=== PATIENT | female | born 1985 | race African-American/Black ===

== ENCOUNTER 2016-06-15 23:59 | Emergency (ER) | payer OTHER ==
[2016-06-16 00:31] LABS: URINE SOURCE CLEAN CATCH
[2016-06-16 01:45] LABS: URINE APPEARANCE CLEAR; URINE BILIRUBIN NEG (NEG); URINE BLOOD NEG (NEG); URINE COLOR YELLOW; URINE GLUCOSE NEG (NEG); URINE KETONE TRACE (NEG); URINE LEUKOCYTE ESTERASE TRACE (NEG); URINE NITRATE NEG (NEG); URINE PROTEIN NEG (NEG); URINE SPECIFIC GRAVITY 1.016 (1.003-1.035)
[2016-06-16 01:48] LABS: CULTURE INDICATED? YES; URBCS1 AUWI 0-2 /[HPF] (0-2); URINE BACTERIA AUWI 1+ (NEGATIVE); URINE SQUAMOUS EPITHELIAL CELL OCC /[HPF]
== END 2016-06-16 02:00 | disposition home or self-care (01) ==
LOC: CFTX 23:59
PROVIDERS: Nurse Practitioner Family
DX: M54.5 Low back pain (principal); F17.210 Nicotine dependence, cigarettes, uncomplicated
CPT/HCPCS: 65222; 81003; 84703; 87086; 99284; J1885